=== PATIENT | male | born 1990 | race Caucasian/White ===

== ENCOUNTER → 2019-03-23 | Outpatient (CLI) | payer OTHER ==
[~2019-03-23] MED LIST: CEPH500 PO; CODACE30 PO; Crutch1 EACH MISC; Naprosyn500 MG PO; Norco 5-325 Ta1 EACH PO; RXCEPH500 PO; RXCODACET PO; RXSULTRIDS PO; SULTRIDS PO; TRIA80TC TOP
== END | disposition home or self-care (01) ==
LOC: LAB SHORT 17:18 → LAB EV 17:18
DX: L02.416 Cutaneous abscess of left lower limb (principal)
CPT/HCPCS: 87070; 87075; 87077; 87147; 87186; 87205